=== PATIENT | male | born 1995 | race Caucasian/White ===

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

== ENCOUNTER 2017-05-22 19:06 | Emergency (ER) | payer BC ==
[2017-05-22 19:58] LABS: BASOPHILS 0.1 % (0-2); EOSINOPHILS 0.2 % (0-7); HEMATOCRIT 42.8 % (42.0-54.0); HEMOGLOBIN 14.7 g/dL (13.5-17.5); IMMATURE GRANULOCYTES 0.2 % (0-5); LYMPHOCYTES 22.4 % (15-50); MCH 31.9 pg (26.0-34.0); MCHC 34.3 g/dL (31.0-37.0); MCV 92.8 fL (80.0-100.0); MEAN PLATELET VOLUME 11.8 fL (7.4-10.4); MONOCYTES 10.3 % (2-11); NEUTROPHILS 66.8 % (40-80); PLATELET COUNT 161 10x3/uL (130-400); RBC 4.61 10x6/uL (4.20-6.10); RDW 12.6 % (11.5-14.5); WBC 8.7 10x3/uL (4.8-10.8)
[2017-05-22 20:27] LABS: ALBUMIN 4.2 g/dL (3.4-5.0); ALKALINE PHOSPHATASE 47 U/L (46-116); ALT (SGPT) 35 U/L (10-68); BILIRUBIN - TOTAL 0.81 mg/dL (0.2-1.3); CALC OSMOLALITY 269 mosm/kg (275-300); CALCIUM 8.3 mg/dL (8.5-10.1); CHLORIDE - SERUM 101 mmol/L (98-107); CREATININE - SERUM 0.9 mg/dL (0.6-1.3); GLUCOSE 103 mg/dL (74-106); PROTEIN - SERUM 7.1 g/dL (6.4-8.2); SODIUM 135 mmol/L (136-145); UREA NITROGEN 12 mg/dL (7-18); eGFR NON AFRICAN AMERICAN > 90 mL/min (90-120)
[2017-05-22 20:47] LABS: POTASSIUM - SERUM 2.9 mmol/L (3.5-5.1)
== END 2017-05-22 22:20 | disposition home or self-care (01) ==
LOC: D.ER 19:06
PROVIDERS: Emergency Medicine
DX: S09.90XA Unspecified injury of head, initial encounter (principal); V43.52XA Car driver injured in collision with other type car in traffic accident, initial encounter; Y93.89 Activity, other specified; Y92.410 Unspecified street and highway as the place of occurrence of the external cause; E87.6 Hypokalemia; F17.200 Nicotine dependence, unspecified, uncomplicated

== ENCOUNTER → 2017-05-31 08:13 | Outpatient (CLI) | payer BC | END | disposition home or self-care (01) | LOC: D.MRI 08:13 | DX: S06.0X9A Concussion with loss of consciousness of unspecified duration, initial encounter (principal); X58.XXXA Exposure to other specified factors, initial encounter ==